=== PATIENT | female | born 1985 | race Caucasian/White ===

== ENCOUNTER 2018-07-14 09:50 | Day surgery (SDC) | payer OTHER ==
[2018-07-14 10:51] VITALS: BMI 30.6
[2018-07-14 11:08] LABS: ALT (SGPT) 10 U/L (8-55); AST (SGOT) 15 U/L (5-34); Albumin 3.2 g/dL (3.5-5.0); Alkaline Phosphatase 210 U/L (40-150); Anion Gap 14 mmol/L (10-20); BUN (Urea Nitrogen) 8 mg/dL (7.0-18.7); Bilirubin, Total 0.3 mg/dL (0.2-1.2); Calc. Creatinine Clearance 128 mL/min (70-130); Calcium 8.6 mg/dL (7.8-10.44); Carbon Dioxide 19 mmol/L (22-29); Chloride 109 mmol/L (98-107); Estimated GFR-MDRD 87; Globulin 3.2 g/dL (2.4-3.5); Glucose 94 mg/dL (70-105); Protein, Total 6.4 g/dL (6.0-8.3); Sodium 138 mmol/L (136-145)
[2018-07-14 11:23] LABS: #Lymphocytes 1.2 thou/uL (1.20-3.40); #Monocytes 0.6 thou/uL (0.11-0.59); #Neutrophils 6.3 thou/uL (1.40-6.50); %Basophils 0.3 % (0.0-1.0); %Eosinophils 0.5 % (0.0-10.0); %Monocytes 7.8 % (0.0-10.0); %Neutrophils 77.4 % (42.0-75.0); Hemoglobin 10.4 g/dL (12.0-16.0); Hypochromia SLIGHT = 6-15 cells (100X) (0-5/hpf); Large Platelets MODERATE; MDiff Complete? YES; Mean Corpuscular HGB CONC 33.6 g/dL (32.0-36.0); Mean Corpuscular Hemoglobin 27.7 pg (27.0-31.0); Mean Corpuscular Volume 82.4 fL (78.0-98.0); Mean Platelet Volume 12.5 fL (7.4-10.4); Platelet Count 125 thou/uL (130-400); Platelet Morphology Comment Appears Adequate; Polychromasia SLIGHT = 2-3 cells (100X) (0-2/hpf); RBC Distribution Width 12.6 % (11.5-14.5); Red Blood Cell (RBC) Count 3.75 mill/uL (4.20-5.40); White Blood Cell (WBC) Count 8.2 thou/uL (4.8-10.8)
[2018-07-14 12:11] LABS: Creatinine, Urine 107.44 mg/dL (47-110)
== END 2018-07-14 13:08 | disposition home or self-care (01) ==
LOC: L&D/OP 09:50
PROVIDERS: ATTEND Family Medicine
DX: O99.89 Other specified diseases and conditions complicating pregnancy, childbirth and the puerperium (principal); R03.0 Elevated blood-pressure reading, without diagnosis of hypertension; R51 Headache
CPT/HCPCS: 36415; 80053; 82570; 84156; 85025; 99285

== ENCOUNTER 2018-07-16 17:00 | Inpatient (IN) | payer MEDICAID, OTHER, SELFPAY ==
[~2018-07-16 17:00] MED LIST: Bupivacaine 0.25% HCL 30 ML VIAL ONE
[2018-07-16] MEDS ORDERED: HYDROcodone/Acetaminophen 5/325 mg Tablet PO PRN (21:24)
[2018-07-16] MEDS ORDERED: Ondansetron PF 4 MG/2 ML Vial IVP PRN (21:24)
[2018-07-16] MEDS ORDERED: Methylergonovine 0.2 MG/ML VIAL IM PRN (21:24)
[2018-07-16] MEDS ORDERED: NS / Oxytocin 40 units/1000ml 1,000 ML IV PRN (21:24)
[2018-07-16] MEDS ORDERED: Carboprost 250 MCG/ML AMP IM PRN (21:24)
[2018-07-16] MEDS ORDERED: Diphenoxylate HCl/Atropine Tablet PO PRN (21:24)
[2018-07-16] MEDS ORDERED: Lidocaine 1% (PF) 30 ML VIAL SC PRN (21:24)
[2018-07-16] MEDS ORDERED: Misoprostol 200 MCG TAB PR PRN (21:24)
[2018-07-16] MEDS ORDERED: Ibuprofen 800 MG TAB PO PRN (21:24)
[2018-07-16] MEDS ORDERED: NS w/ Oxytocin 10 units 500 ML IV SCH (21:30)
[2018-07-16 23:06] LABS: Hemoglobin 9.8 g/dL (12.0-16.0); Mean Corpuscular HGB CONC 33.8 g/dL (32.0-36.0); Mean Corpuscular Hemoglobin 27.7 pg (27.0-31.0); Mean Corpuscular Volume 81.9 fL (78.0-98.0); Mean Platelet Volume 12.7 fL (7.4-10.4); Platelet Count 114 thou/uL (130-400); RBC Distribution Width 12.8 % (11.5-14.5); Red Blood Cell (RBC) Count 3.54 mill/uL (4.20-5.40); White Blood Cell (WBC) Count 10.3 thou/uL (4.8-10.8)
[2018-07-16] MEDS: Misoprostol 100 MCG TAB PO SCH (23:20)
[2018-07-16] MEDS: Lactated Ringer's 1,000 ML IV SCH (23:20)
[2018-07-16] MEDS: NS w/ Oxytocin 10 units 500 ML IV SCH (23:20)
[2018-07-16 23:43] LABS: Syphilis Antibody Nonreactive (Nonreactive); Syphilis Antibody Index 0.03 S/CO (<1.00 Non-Reactive)
[2018-07-17 00:20] LABS: HBSAg Index 0.21 S/CO (0-0.99); Hep B Surf Ag Non-Reactive S/CO (NonReactive)
[2018-07-17] MEDS: Misoprostol 100 MCG TAB PO SCH ×2 (02:34→05:22)
[2018-07-17] MEDS: Butorphanol Tartrate 1 MG/ML VIAL SLOW IVP PRN ×2 (02:35→05:16)
[2018-07-17] MEDS: Lactated Ringer's 1,000 ML IV SCH ×3 (05:11→23:43)
[2018-07-17] MEDS ORDERED: Fentanyl 4 mcg/Bup 0.1% Cadd 100 ML ONE ×2 (08:24→16:52)
[2018-07-17] MEDS ORDERED: Ondansetron PF 4 MG/2 ML Vial IVP PRN ×3 (09:25→21:39)
[2018-07-17] MEDS ORDERED: ePHEDrine/0.9% NaCl/PF SYRINGE 50 mg/10 ml SLOW IVP PRN (09:25)
[2018-07-17] MEDS ORDERED: Eucerin (Mineral Oil/Petrolatum,White) 30 gm Jar TOP PRN ×2 (09:25→19:04)
[2018-07-17] MEDS ORDERED: Lactated Ringer's 500 ML IV PRN (09:25)
[2018-07-17] MEDS ORDERED: diphenhydrAMINE 50 MG/ML VIAL IVP PRN ×2 (09:25→19:04)
[2018-07-17] MEDS ORDERED: Promethazine HCl 25 MG/ML VIAL IM PRN ×2 (09:25→19:04)
[2018-07-17] MEDS ORDERED: Naloxone HCl 0.4 mg/ml Vial IVP PRN ×4 (09:25→19:04)
[2018-07-17] MEDS ORDERED: Acetaminophen 325 MG TAB PO PRN (09:25)
[2018-07-17] MEDS ORDERED: Communication Order-Pharmacy FS SCH ×2 (09:30→19:15)
[2018-07-17] MEDS: Fentanyl 4 mcg/Bupivacaine 0.1% Cassette 100 ML EPIDURAL SCH ×2 (09:41→16:54)
[2018-07-17] MEDS ORDERED: Bicitra 30 ML UDCUP ONE ×2 (15:58→17:40)
[2018-07-17] MEDS ORDERED: Gentamicin Sulfate 80 MG in Premix Bag 1 BAG IVPB SCH (16:00)
[2018-07-17] MEDS ORDERED: Ampicillin 2 GM in Sodium Chloride 0.9% 100 ML IVPB SCH (16:00)
[2018-07-17] MEDS ORDERED: CEFAZOLIN 2 GM/50 ML BAG ONE (17:36)
[2018-07-17] MEDS ORDERED: CEFAZOLIN 2 GM/50 ML-DEXTROSE 2 GM in Premix Bag 1 BAG IVPB SCH (17:45)
[2018-07-17] MEDS ORDERED: Bicitra 30 ML UDCUP PO SCH (17:45)
[2018-07-17] MEDS ORDERED: CEFAZOLIN/Water 2 GM/20 ML SYRINGE SLOW IVP SCH (17:45)
[2018-07-17] MEDS ORDERED: Misoprostol 200 MCG TAB ONE (17:58)
[2018-07-17] MEDS ORDERED: Carboprost 250 MCG/ML AMP ONE (17:58)
[2018-07-17] MEDS ORDERED: Lidocaine 2% 10 ML INJ ONE ×2 (18:14→18:15)
[2018-07-17] MEDS ORDERED: Oxytocin 10 UNITS/ML VIAL ONE (18:39)
[2018-07-17] MEDS ORDERED: Morphine PF 1 MG/ML SYR ONE ×2 (18:39→18:40)
[2018-07-17] MEDS ORDERED: Fentanyl 100 MCG/2 ML VIAL ONE (18:43)
[2018-07-17 18:57] LABS: Actual Bicarbonate (HCO3a) 24.4 mEq/L (22-28); Actual Bicarbonate (HCO3v) 24 mEq/L (22-28); Base Excess (BEa) -3.3 mEq/L (-2.0 to +3.0)
[2018-07-17 19:02] LABS: Base Excess -3.1 mEq/L (-2.0 to +3.0)
[2018-07-17] MEDS ORDERED: Promethazine HCl 25 MG SUPP PR PRN (19:04)
[2018-07-17] MEDS ORDERED: Ketorolac Tromethamine 30 MG/ML VIAL IVP PRN (19:04)
[2018-07-17] MEDS ORDERED: Ondansetron HCl/PF 4 MG/2 ML Vial IVP PRN (19:05)
[2018-07-17] MEDS ORDERED: Meperidine HCl/PF 25 MG/ML VIAL SLOW IVP PRN (19:05)
[2018-07-17] MEDS ORDERED: HYDROmorphone 2 MG/ML VIAL SLOW IVP PRN (19:05)
[2018-07-17] MEDS ORDERED: L&D-Morphine 4 MG/ML VIAL SLOW IVP PRN (19:05)
[2018-07-17] MEDS ORDERED: Ketorolac Tromethamine 30 MG/ML VIAL IVP SCH (19:15)
[2018-07-17] MEDS ORDERED: Ketorolac Tromethamine 30 MG/ML VIAL ONE (20:16)
[2018-07-17] MEDS: cloNIDine 0.1 MG TAB PO PRN (20:18)
[2018-07-17] MEDS ORDERED: NS / Oxytocin 40 units/1000ml 1,000 ML IV SCH (21:39)
[2018-07-17] MEDS ORDERED: diphenhydrAMINE 25 MG CAP PO PRN (21:39)
[2018-07-17] MEDS ORDERED: HYDROcodone/Acetaminophen 5/325 mg Tablet PO PRN ×2 (21:39)
[2018-07-17] MEDS ORDERED: Meperidine HCl/PF 25 MG/ML VIAL IM PRN (21:39)
[2018-07-17] MEDS ORDERED: Lactated Ringer's 1,000 ML IV SCH (21:39)
[2018-07-17] MEDS ORDERED: Bisacodyl 10 MG SUPP PR PRN (21:39)
[2018-07-17] MEDS ORDERED: Lanolin Ointment 7 GM TUBE TOP PRN (21:39)
[2018-07-17] MEDS: Docusate Calcium (SURFAK) 240 MG CAP PO SCH (21:49)
[2018-07-17] MEDS ORDERED: Ibuprofen 800 MG TAB PO SCH (22:00)
[2018-07-17] MEDS: NS w/ Oxytocin 10 units 500 ML IV SCH (23:43)
[2018-07-18] MEDS ORDERED: CEFAZOLIN 2 GM/50 ML-DEXTROSE 2 GM in Premix Bag 1 BAG IVPB SCH (01:00)
[2018-07-18] MEDS: Ketorolac Tromethamine 30 MG/ML VIAL IVP PRN ×2 (02:00→08:02)
[2018-07-18 06:17] LABS: Hemoglobin 7.4 g/dL (12.0-16.0); Mean Corpuscular HGB CONC 33.3 g/dL (32.0-36.0); Mean Corpuscular Hemoglobin 27.9 pg (27.0-31.0); Mean Corpuscular Volume 83.7 fL (78.0-98.0); Mean Platelet Volume 12.2 fL (7.4-10.4); Platelet Count 83 thou/uL (130-400); RBC Distribution Width 12.8 % (11.5-14.5); Red Blood Cell (RBC) Count 2.67 mill/uL (4.20-5.40); White Blood Cell (WBC) Count 13.4 thou/uL (4.8-10.8)
--- NOTE | 2018-07-18 07:32 | OP ---
DATE OF PROCEDURE: 07/17/2018 Ms. Josefina Vazquez had a primary for failure to progress and chorioamnionitis. Primary surgeon was Dr. Myron Valdez. Please refer to his operative note for complete details. I functioned as bindery assistant on this case. Job ID: [id number]
[2018-07-18] MEDS: Simethicone Chewable 80 MG TAB PO PRN ×2 (08:01→21:07)
[2018-07-18] MEDS: Docusate Calcium (SURFAK) 240 MG CAP PO SCH ×2 (08:01→21:07)
[2018-07-18] MEDS: Prenatal Vitamin 1 TAB PO SCH (08:01)
[2018-07-18] MEDS: Ferrous Sulfate 325 MG TAB PO SCH ×2 (08:01→18:59)
[2018-07-18] MEDS: HYDROcodone/Acetaminophen 5/325 mg Tablet PO PRN ×2 (11:53→21:07)
[2018-07-18] MEDS: Ibuprofen 800 MG TAB PO SCH ×2 (14:53→22:20)
[2018-07-18] MEDS ORDERED: Sodium Chloride 0.9% 10 ML ONE (15:51)
[2018-07-18] MEDS: Naloxone HCl 0.4 mg/ml Vial IV PRN ×2 (15:52→16:29)
--- NOTE | 2018-07-18 21:04 | OP ---
DATE OF PROCEDURE: 07/17/2018 PREOPERATIVE DIAGNOSES: 1. Term . 2. Preeclampsia. 3. Failure to descend. 4. Intrapartum fever, suspect chorioamnionitis. POSTOPERATIVE DIAGNOSES: 1. Term . 2. Preeclampsia. 3. Failure to descend. 4. Intrapartum fever, suspect chorioamnionitis. 5. Right occiput posterior presentation. PROCEDURE PERFORMED: Primary low cervical transverse section. HOTEL REGISTRATION CLERK: Robin DESCRIPTION OF PROCEDURE: After informed consent was obtained from the patient, she was taken to the operating room where her epidural anesthesia was re-dosed. She was prepped and draped in the usual sterile fashion. Once anesthesia was determined to the adequate, a Pfannenstiel incision was created with a #10 scalpel blade and carried down to the fascia. Skin bleeders were coagulated with the Bovie. The fascia was nicked in the midline and the fascial incision was extended transverse with Baron scissors. The superior fascial segments were grasped with Hernesto and elevated, and the underlying rectus muscles were dissected free, first bluntly and then sharply. This was repeated with the inferior fascial segment. The rectus muscles were divided in the midline bluntly. The peritoneum was entered bluntly. An Archie O retractor was inserted. The uterus was entered in a low transverse fashion with a clean #10 scalpel blade. Hysterotomy was extended superolaterally with blunt dissection. Clear amniotic fluid was encountered. vertex was delivered on to the operative field without difficulty followed by the remainder of the . Cord was clamped x2 and a vigorous female infant was handed to the staff in attendance. Cord blood was obtained. The placenta was manually extracted. The uterus was exteriorized and freed of clots and debris. The uterus was repaired with a running locking suture of 0 Vicryl in a single full-thickness layer followed by a series of [id number] sutures along the incision line for hemostasis, which was observed. The abdomen was copiously with saline. The Archie O retractor was removed. Seprafilm was applied to the repair of the uterine incision and the anterior uterine fundus. The uterus was then returned to the abdomen where hemostasis was again seen. The peritoneum was repaired with a running suture of 3-0 Vicryl. The facia was repaired with a running suture of 0 PDS. Three interrupted sutures of 3-0 Vicryl were placed in the subdermal layer to reapproximate the skin, which was closed with skin bethel. Sponge and instrument counts were correct x4. She tolerated the procedure well without any acute complications. She was taken to recovery room in stable condition and the infant to the nursery in stable condition. FINDINGS: Viable female , 7 pounds and 11 ounces. Apgars of 8 and 9 at 1 and 5 minutes, respectively. COMPLICATIONS: None. SPECIMENS: Placenta to Pathology. Job ID: [id number]
[2018-07-18] MEDS: cloNIDine 0.1 MG TAB PO PRN (21:06)
[2018-07-19] MEDS: HYDROcodone/Acetaminophen 5/325 mg Tablet PO PRN ×3 (02:26→19:10)
[2018-07-19] MEDS: Ibuprofen 800 MG TAB PO SCH ×3 (05:33→21:36)
[2018-07-19] MEDS: Prenatal Vitamin 1 TAB PO SCH (09:28)
[2018-07-19] MEDS: Docusate Calcium (SURFAK) 240 MG CAP PO SCH ×2 (09:28→21:36)
[2018-07-19] MEDS: Ferrous Sulfate 325 MG TAB PO SCH ×2 (09:28→18:01)
[2018-07-19] MEDS: Simethicone Chewable 80 MG TAB PO PRN ×2 (09:29→21:36)
[2018-07-20] MEDS: HYDROcodone/Acetaminophen 5/325 mg Tablet PO PRN ×3 (00:28→12:25)
[2018-07-20 08:19] VITALS: BP 128/73; TEMP 98.1
[2018-07-20] MEDS: Ibuprofen 800 MG TAB PO SCH ×2 (08:52→15:59)
[2018-07-20] MEDS: Docusate Calcium (SURFAK) 240 MG CAP PO SCH (08:53)
[2018-07-20] MEDS: Ferrous Sulfate 325 MG TAB PO SCH (08:53)
[2018-07-20] MEDS: Simethicone Chewable 80 MG TAB PO PRN (08:53)
[2018-07-20] MEDS: Prenatal Vitamin 1 TAB PO SCH (08:53)
--- NOTE | 2018-07-24 10:07 | HP ---
HISTORY OF PRESENT ILLNESS: This is a 33-year-old female, G1, P0, at 39 weeks estimated gestational age, admitted for induction of labor due to preeclampsia. As previously stated, has been complicated by preeclampsia for the last 4 days and advanced maternal age, otherwise, care has been uneventful. No known ultrasound abnormalities. PAST MEDICAL HISTORY: No chronic diseases. PAST SURGICAL HISTORY: No previous surgeries. MEDICATIONS: Include vitamins and iron. ALLERGIES: SHE HAS NO KNOWN DRUG ALLERGIES. FAMILY HISTORY: Noncontributory. PHYSICAL EXAMINATION: On admission, VITAL SIGNS: Showed a blood pressure of 136/92. Remainder of her vital signs were normal. She is afebrile. LUNGS: Clear. HEART: Regular rate and rhythm. ABDOMEN: Gravid and soft. EXTREMITIES: 2+ edema. Reflexes are 1+. CERVICAL EXAM: Closed/soft. Cephalic presentation. HEART TONES: 135, moderate variability, accelerations present, no decelerations seen. ASSESSMENT AND PLAN: 1. . 2. Preeclampsia. 3. Advanced maternal age. Admit to Labor and Delivery for cervical ripening overnight, serial blood pressures, continuous electronic monitoring, magnesium sulfate if blood pressures warrant this intervention, p.r.n. antihypertensives. Job ID: [id number]
== END 2018-07-20 17:15 | disposition home or self-care (01) | DRG 788 ==
LOC: L&D 20:40 → 3SW 07-17 22:03
PROVIDERS: ADMIT Family Medicine; ATTEND Family Medicine
PROC: 10D00Z1 Extraction of Products of Conception, Low, Open Approach (ICD-10-PCS; principal; 2018-07-17)
PROC: 10907ZC Drainage of Amniotic Fluid, Therapeutic from Products of Conception, Via Natural or Artificial Opening (ICD-10-PCS; 2018-07-17)
PROC: 3E033VJ Introduction of Other Hormone into Peripheral Vein, Percutaneous Approach (ICD-10-PCS; 2018-07-17)
DX: O14.94 Unspecified pre-eclampsia, complicating childbirth (principal); Z3A.39 39 weeks gestation of pregnancy; Z37.0 Single live birth; O32.4XX0 Maternal care for high head at term, not applicable or unspecified; O41.1290 Chorioamnionitis, unspecified trimester, not applicable or unspecified
CPT/HCPCS: 36415; 51702; 82805; 85027; 86780; 86850; 86900; 86901; 87340; 88307; J0595; J1580; J1885; J2001; J2274; J2310; J2590; J3010; J3490; S0020

== ENCOUNTER 2020-09-30 14:12 | Outpatient (CLI) | payer OTHER | END 2020-09-30 14:13 | disposition home or self-care (01) | LOC: BICMAMMO 14:12 | PROVIDERS: ATTEND Nurse Practitioner | DX: N63.20 Unspecified lump in the left breast, unspecified quadrant (principal) | CPT/HCPCS: 77066; G0279 ==